=== PATIENT | male | born 1975 | race Caucasian/White ===

== ENCOUNTER → 2017-11-25 15:07 | Outpatient (CLI) | payer BC, SELFPAY ==
[2017-11-25 18:05] LABS: Absolute Lymphocyte Count 1.97 X10^3/ul (0.83-4.51); Absolute Neutrophil Count 4.3 X10^3/uL (2.0-7.7); Basophil# 0.02 X10^3/uL; Basophil% 0.3 % (0-1); Eosinophil# 0.25 X10^3/uL; Eosinophils% 3.4 % (0-5); Hematocrit 46.6 % (40-54); Hemoglobin 15.5 g/dl (13.0-16.5); Lymphocyte # 1.97 X10^3/ul (4.0); Mean Corp Hgb Conc 33.3 g/gl (32-36); Mean Corpuscular Hgb 30.2 pg (27.0-32.0); Mean Corpuscular Volume 90.7 fL (80-94); Mean Platelet Vol. 9.3 fl (6.2-12.0); Monocyte# 0.78 X10^3/uL; Monocyte% 10.7 % (0-10); Neutrophil # 4.26 X10^3/uL (2.7-7.7); Neutrophil % 58.5 % (47-70); Platelet Count 247 K/mm3 (150-450); RBC Distribution Width CV 12.9 % (11.6-14.6); RBC Distribution Width SD 42.6 fl (35.1-43.9); Red Blood Count 5.14 M/mm3 (4.6-6.2); White Blood Count 7.3 K/mm3 (4.4-11.0)
[2017-11-25 18:11] LABS: POSITIVE COUNT NO; POSITIVE DIFFERENTIAL NO; POSITIVE MORPHOLOGY NO
[2017-11-25 18:20] LABS: ALB/GLOB Ratio 1.1 RATIO (0.9-2.4); AST(SGOT) 20 U/L (15-37); Alanine Aminotransfer ALT/SGPT 44 U/L (16-61); Albumin, Serum 3.8 g/dL (3.2-5.0); Alkaline Phosphatase 87 U/L (45-117); Anion Gap 7 (5-15); BUN 18 mg/dL (7-18); BUN/Creat Ratio 17.8 RATIO (10-20); Calcium,Total 8.5 mg/dL (8.5-10.1); Chloride 108 mmol/L (98-107); Creatinine, Serum 1.01 mg/dL (0.70-1.30); EST Glomerular Filtration Rate 86 mL/min (>60); Est Glom Filt Rate - Afr Amer 104 mL/min (>60); Globulin 3.5 g/dL (2.2-4.2); Glucose 101 mg/dL (74-106); Potassium 3.4 mmol/L (3.5-5.1); Protein, Total 7.3 g/dL (6.4-8.2); Sodium Level 143 mmol/L (136-145)
[2017-11-29 06:07] LABS: QNTFERON TB Ag Minus Nil Value 0.01 IU/mL (.); QNTFERON TB Ag Value 0.02 IU/mL (.); QNTFERON TB Mitogen Value > 10.00 IU/mL (.); QNTFERON TB Nil Value 0.01 IU/mL (.)
[2017-11-29 11:58] LABS: Hep B Surface Antibodies Reactive (.); Hep C Antibodies <0.1 s/co ratio (0.0-0.9); QNTIFERON TB Gold Negative (Negative)
== END ==
PROVIDERS: Family Provider Family Medicine; PCP Family Medicine; Visit Provider Physician Assistant
DX: L40.0 Psoriasis vulgaris (principal); Z79.899 Other long term (current) drug therapy
CPT/HCPCS: 36415; 80053; 85025; 86480; 86706; 86803

== ENCOUNTER → 2019-03-14 15:51 | Outpatient (CLI) | payer BC, SELFPAY ==
[2017-02-07 08:09] VITALS: BMI 26.4
[2019-03-14 17:32] LABS: Absolute Neutrophil Count 2.9 X10^3/uL (2.0-7.7); Basophil# 0.03 X10^3/uL; Basophil% 0.6 % (0-1); Hematocrit 46.6 % (40-54); Hemoglobin 15.9 g/dl (13.0-16.5); Lymphocyte % 30.1 % (19-41); Mean Corp Hgb Conc 34.1 g/gl (32-36); Mean Corpuscular Hgb 29.4 pg (27.0-32.0); Mean Corpuscular Volume 86.1 fL (80-94); Mean Platelet Vol. 9.4 fl (6.2-12.0); Monocyte# 0.45 X10^3/uL; Neutrophil # 2.91 X10^3/uL (2.7-7.7); Neutrophil % 58.3 % (47-70); Platelet Count 215 K/mm3 (150-450); RBC Distribution Width CV 13.1 % (11.6-14.6); RBC Distribution Width SD 40.6 fl (35.1-43.9); Red Blood Count 5.41 M/mm3 (4.6-6.2)
[2019-03-14 17:38] LABS: POSITIVE COUNT NO; POSITIVE DIFFERENTIAL NO; POSITIVE MORPHOLOGY NO
[2019-03-14 17:53] LABS: Anion Gap 8 (5-15); BUN 20 mg/dL (7-18); BUN/Creat Ratio 19.2 RATIO (10-20); Calcium,Total 8.9 mg/dL (8.5-10.1); Chloride 105 mmol/L (98-107); Creatinine, Serum 1.04 mg/dL (0.70-1.30); EST Glomerular Filtration Rate 83 mL/min (>60); Est Glom Filt Rate - Afr Amer 100 mL/min (>60); Glucose 93 mg/dL (74-106); Potassium 3.7 mmol/L (3.5-5.1); Sodium Level 138 mmol/L (136-145)
[2019-03-17 03:06] LABS: QNTFERON TB Mitogen Value > 10.00 IU/mL (.); QNTFERON TB Nil Value 0.02 IU/mL (.); QNTFERON TB1+ Ag Value 0.02 IU/mL (.); QNTFERON TB2+ Ag Value 0.01 IU/mL (.)
[2019-03-18 14:06] LABS: QNTIFERON TB Positive Criteria Negative (Negative)
== END ==
PROVIDERS: Family Provider Family Medicine; PCP Family Medicine; Referring Provider Family Medicine; Visit Provider Nurse Practitioner Family
DX: L40.0 Psoriasis vulgaris (principal); L20.89 Other atopic dermatitis; Z79.899 Other long term (current) drug therapy
CPT/HCPCS: 36415; 80048; 85025; 86480

== ENCOUNTER → 2020-02-22 12:17 | Outpatient (CLI) | payer BC, SELFPAY ==
--- NOTE | 2020-02-22 12:21 | CT_ITS ---
STUDY: CT ABDOMEN AND PELVIS WITHOUT CONTRAST REASON FOR EXAM: Male, 44 years old. HEMATURIA, RIGHT FLANK PAIN RADIATION DOSAGE (If Supplied By Facility): CTDIvol = ( 7.61 ) mGy, DLP = ( 361.57 ) mGycm TECHNIQUE: Transaxial images were obtained from the dome of the diaphragm to the symphysis pubis without oral contrast, and without intravenous contrast. Sagittal and coronal images were reconstructed. Individualized dose optimization techniques were used for this CT. COMPARISON: None. FINDINGS: The visualized lung bases are unremarkable. The visualized portions of the heart are within normal limits. Normal liver. Normal gallbladder and extrahepatic biliary system. Normal spleen. Normal pancreas. Normal bilateral adrenal glands. 2 tiny nonobstructive right intrarenal calculi. Punctate calcification in the left midpole calyx. Normal visualized stomach. Normal small intestine. Normal colon. The appendix is visualized and appears normal. There is scattered atherosclerotic calcification of the abdominal aorta, without a demonstrated aneurysm. Normal inferior vena cava. Normal retroperitoneum. A tiny calcification is seen at the base of the bladder on the right side suggestive of a recently passed ureteral calculus. Normal abdominal wall. Disc space narrowing at the L5-S1 level with subchondral sclerosis. CT/Abdomen/Pelvis without Cont IMPRESSION: Findings suggestive of a recently passed tiny right ureteral calculus. The calculus is seen at the base of the bladder on the right side. Nonobstructive bilateral intrarenal calculi. Electronically Signed: Tam Kolb, at 12:36 EDT , Service support ,
== END ==
PROVIDERS: PCP Family Medicine; Referring Provider Family Medicine; Visit Provider Family Medicine
DX: R31.9 Hematuria, unspecified (principal)
CPT/HCPCS: 74176

== ENCOUNTER → 2021-06-03 12:22 | Outpatient (CLI) | payer BC, SELFPAY ==
[2021-06-03 15:04] LABS: Absolute Lymphocyte Count 1.93 X10^3/uL (0.83-4.51); Absolute Neutrophil Count 4.9 X10^3/uL (2.0-7.7); Basophil# 0.09 X10^3/uL; Basophil% 1.1 % (0-1); Eosinophil# 0.65 X10^3/uL; Eosinophils% 7.9 % (0-5); Hematocrit 47.9 % (40-54); Hemoglobin 16.2 g/dL (13.0-16.5); Lymphocyte # 1.93 X10^3/ul (0.83-4.51); Lymphocyte % 23.5 % (19-41); Mean Corp Hgb Conc 33.8 g/dL (32-36); Mean Corpuscular Hgb 29.7 pg (27.0-32.0); Mean Corpuscular Volume 87.7 fL (80-94); Mean Platelet Vol. 9.1 fl (6.2-12.0); Monocyte# 0.65 X10^3/uL; Monocyte% 7.9 % (0-10); NRBC Flagged by Analyzer 0 % (0-5); Neutrophil # 4.89 X10^3/uL (2.7-7.7); Neutrophil % 59.4 % (47-70); Platelet Count 291 K/mm3 (150-450); RBC Distribution Width CV 12.3 % (11.6-14.6); RBC Distribution Width SD 39.3 fl (35.1-43.9); Red Blood Count 5.46 M/mm3 (4.6-6.2); White Blood Count 8.2 K/mm3 (4.4-11.0)
[2021-06-03 15:44] LABS: ALB/GLOB Ratio 0.8 RATIO (0.9-2.4); AST(SGOT) 18 U/L (15-37); Alanine Aminotransfer ALT/SGPT 39 U/L (16-61); Albumin, Serum 3.7 g/dL (3.2-5.0); Alkaline Phosphatase 100 U/L (45-117); Anion Gap 5 (5-15); BUN 13 mg/dL (7-18); BUN/Creat Ratio 11.9 RATIO (10-20); Calcium,Total 9.3 mg/dL (8.5-10.1); Chloride 105 mmol/L (98-107); Cholesterol 192 mg/dL (200); Creatinine, Serum 1.09 mg/dL (0.70-1.30); EST Glomerular Filtration Rate 78 mL/min (>60); Est Glom Filt Rate - Afr Amer 94 mL/min (>60); Globulin 4.4 g/dL (2.2-4.2); Glucose 126 mg/dL (74-106); High Density Lipoprotein 36 mg/dL; Potassium 3.7 mmol/L (3.5-5.1); Protein, Total 8.1 g/dL (6.4-8.2); Sodium Level 138 mmol/L (136-145); Thyroid Stim Hormone (TSH) 1.54 uIU/mL (0.358-3.74); Triglycerides 151 mg/dL; Very Low Density Lipoprotein 30 mg/dL (5-40)
== END ==
PROVIDERS: PCP Family Medicine; Referring Provider Family Medicine; Visit Provider Family Medicine
DX: R03.0 Elevated blood-pressure reading, without diagnosis of hypertension (principal); R00.2 Palpitations
CPT/HCPCS: 36415; 80053; 80061; 84443; 85025

== ENCOUNTER 2021-06-16 16:53 | Inpatient (IN) | payer BC, SELFPAY ==
[2021-06-16] VITALS (19 sets, daily range): BP systolic 85–134; BP diastolic 67–104; PULSE 86–125; RESP 12–28; TEMP 35.4–37.1; O2SAT 94–100; BMI 27.8; BMI 26.2
--- NOTE | 2021-06-16 16:56 | EKG12_ITS ---
Test Reason : Blood Pressure : / mmHG Vent. Rate : 170 BPM Atrial Rate : 202 BPM P-R Int : 000 ms QRS Dur : 094 ms QT Int : 300 ms P-R-T Axes : 000 244 048 degrees QTc Int : 504 ms Supraventricular tachycardia Possible Right ventricular hypertrophy Possible Inferior infarct , age undetermined Abnormal ECG Confirmed by ADAMARIS BROWN, JANA ([id number]), editor dictionary NICOLAS MEZA ([id number]) on 06/18/2021 8:44:46 AM Referred By: JENNY Confirmed By:JANA BAILON MD
[2021-06-16] MEDS: 0.9% Normal Saline 1,000 ML 1000 ML IV (17:03)
--- NOTE | 2021-06-16 17:05 | RAD_ITS ---
STUDY: X-RAY CHEST REASON FOR EXAM: Male, 45 years old. Chest pain/pressure TECHNIQUE: Single AP portable view of the chest. COMPARISON: 02/07/2017 FINDINGS: EKG leads overlie the chest The lungs are clear and expanded. There is no demonstrated pleural abnormality. Normal size heart. Normal mediastinum and gato. Normal visualized pulmonary arteries. Normal visualized aortic arch and descending thoracic aorta. There are diffuse degenerative changes of the visualized thoracic spine. Normal visualized ribs, clavicles, and shoulders. There is no demonstrated abnormality of the visualized soft tissue structures of the upper abdomen. RAD/Chest 1 View (Portable) IMPRESSION: No acute pulmonary process Electronically Signed: López Perez MD at 17:19 EDT , Service support ,
--- NOTE | 2021-06-16 17:08 | EKG12_ITS ---
Test Reason : Blood Pressure : / mmHG Vent. Rate : 099 BPM Atrial Rate : 099 BPM P-R Int : 136 ms QRS Dur : 088 ms QT Int : 318 ms P-R-T Axes : 079 252 035 degrees QTc Int : 408 ms Sinus rhythm with frequent and consecutive Premature ventricular complexes Right ventricular hypertrophy Inferior infarct , age undetermined Abnormal ECG When compared with ECG of 16-JUN-2021 17:04, MANUAL COMPARISON REQUIRED, DATA IS UNCONFIRMED Confirmed by ADELA BROWN, AMANDA ([id number]), newspaper editor NICOLAS MEZA ([id number]) on 06/18/2021 12:41:24 PM Referred By: JENNY Confirmed By:AMANDA CHAPMAN MD
[2021-06-16 17:09] LABS: Absolute Neutrophil Count 5.7 X10^3/uL (2.0-7.7); Basophil% 0.8 % (0-1); Eosinophil# 1.14 X10^3/uL; Eosinophils% 9.5 % (0-5); Hematocrit 50.6 % (40-54); Hemoglobin 15.9 g/dL (13.0-16.5); Lymphocyte % 34.1 % (19-41); Mean Corp Hgb Conc 31.4 g/dL (32-36); Mean Corpuscular Hgb 28.9 pg (27.0-32.0); Mean Platelet Vol. 9.3 fl (6.2-12.0); Monocyte# 0.95 X10^3/uL; Monocyte% 7.9 % (0-10); NRBC Flagged by Analyzer 0 % (0-5); Neutrophil # 5.66 X10^3/uL (2.7-7.7); Neutrophil % 47.2 % (47-70); Platelet Count 272 K/mm3 (150-450); RBC Distribution Width CV 12.3 % (11.6-14.6); RBC Distribution Width SD 41.9 fl (35.1-43.9)
[2021-06-16] MEDS: Adenosine 6 MG/2 ML Syringe IV (17:11)
[2021-06-16] MEDS: Adenosine 6 MG/2 ML Syringe 12 MG IV (17:11)
--- NOTE | 2021-06-16 17:18 | CT_ITS ---
We are attempting to reach an attending provider to discuss findings. An addendum with communication details will be sent when the communication is complete. EXAM: CT ANGIOGRAPHY CHEST WITHOUT AND WITH INTRAVENOUS CONTRAST : 1975 CLINICAL INDICATION: High pretest probability for pulmonary embolus TECHNIQUE: Helically acquired angiography images were obtained of the chest without and with intravenous contrast. This CT exam was performed using one or more of the following dose reduction techniques: automated exposure control, adjustment of the mA and/or kV according to patient size, and/or use of iterative reconstruction technique. This report was created using [employer] report generation technology. MIP reconstructed images were created and reviewed. CONTRAST: IV 100mL [id number] COMPARISON: None. FINDINGS: PULMONARY ARTERIES: Large filling defects noted throughout the upper and lower lobe pulmonary artery branches as well as within the main pulmonary arteries as well as saddle embolus component. AORTA: Unremarkable. Normal in caliber. No evidence of dissection. GREAT VESSELS OF AORTIC ARCH: Unremarkable. Normal in caliber. No evidence of dissection. LUNGS AND PLEURAL SPACES: Peripheral 13 mm nodular density within the lateral segment of the right middle lobe may represent focal pneumonia or pulmonary infarct. No mass. No pleural effusion or thickening. HEART: Right ventricle is distended and contrast refluxes into dilated inferior vena cava and hepatic veins indicating right heart strain. No pericardial effusion. MEDIASTINUM: Unremarkable. No mediastinal or hilar adenopathy. Esophagus is unremarkable. No hiatal hernia. THYROID: Unremarkable. No thyroid lesions. BONES/JOINTS: Unremarkable. No suspicious lytic or blastic abnormality. CT/CTA Chest W/WO Contrast IMPRESSION: 1. Acute pulmonary embolism with saddle embolus, large bilateral embolus burden and evidence of right heart strain. 2. 13 mm peripheral right middle lobe nodular density which may represent pneumonia or possibly pulmonary infarction. Follow-up recommended. Individualized dose optimization techniques were used for this CT. at 1749 Reported and signed by: Dhiraj Brownlee MD Electronically Signed: Dhiraj Brownlee MD at 17:48 EDT Tel , Service support ,
[2021-06-16 17:26] LABS: ALB/GLOB Ratio 0.7 RATIO (0.9-2.4); AST(SGOT) 36 U/L (15-37); Alanine Aminotransfer ALT/SGPT 57 U/L (16-61); Albumin, Serum 3.2 g/dL (3.2-5.0); Alkaline Phosphatase 104 U/L (45-117); Anion Gap 19 (5-15); BUN 17 mg/dL (7-18); BUN/Creat Ratio 11.7 RATIO (10-20); Calcium,Total 8.9 mg/dL (8.5-10.1); Chloride 101 mmol/L (98-107); Creatinine, Serum 1.45 mg/dL (0.70-1.30); EST Glomerular Filtration Rate 56 mL/min (>60); Est Glom Filt Rate - Afr Amer 67 mL/min (>60); Estimated Creatinine Clearance 68.52 ml/min; Globulin 4.6 g/dL (2.2-4.2); Glucose 168 mg/dL (74-106); Lipase 123 U/L (73-393); Potassium 2.9 mmol/L (3.5-5.1); Protein, Total 7.8 g/dL (6.4-8.2); Sodium Level 141 mmol/L (136-145); Troponin-I HS 29 pg/mL (3.0-78.0)
[2021-06-16 17:31] LABS: International Normalized Ratio 1.2; Prothrombin Time (Protime)PT. 14.2 SECONDS (11.7-14.9)
[2021-06-16 17:32] LABS: Partial Thromboplast Time 25.6 Seconds (24.1-36.2)
--- NOTE | 2021-06-16 17:36 | EDS_ITS ---
HPI History of Present Illness Chief Complaint: General Illness Detail of Chief Complaint: Hypoxia, hypotension and rapid heart rate Informant: patient, family and EMS Onset/Context/Timing Onset: Hours (Acutely worse past hour or 2 prior to presentation) and Weeks (Onset shortness of breath started 2 to 3 weeks ago and dyspnea on exertion and fatigue) Context: Onset with activity and Sudden Onset Timing: Continuous Quality: Dyspnea and fatigue Location: Respiratory Current Severity: Severe Maximum Severity: Severe Worsened by: Nothing other than activity Relieved by: Nothing Associated Symptoms Associated Symptoms: Today lightheadedness and difficulty breathing Narrative Narrative: Patient is a 45-year-old male who presents with hypotension, hypoxia, rapid heartbeat. He states he is not been well for the past 2 to 3 weeks. He saw his primary care doctor a week ago. He denies history of VTE. He denies leg pain, swelling discoloration. Has not had surgery in the past month. He denies any infectious symptoms. He denies contact with anyone's been ill. He denies black or maroon-colored stool. He denies bleeding of his gums. Denies blood in his urine. Prior similar symptoms: Yes Recent Illness/Hospitalization: No PFSH PFSH Medical History Former smoker Medical History no medical history no medical history Home Medications cetirizine [Zyrtec] 10 mg PO PRN PRN 02/07/17 [History Last Taken Unknown] Allergy/AdvReac Type Severity Reaction Status Date / Time No Known Allergies Allergy Verified 02/07/17 08:31 Surgical History no surgical history no surgical history Social History (Updated 06/16/21 @ 17:[address] Fredis Aguilar MD) household members: spouse and children housing: house Smoking Status: Former smoker alcohol intake: current alcohol intake frequency: other substance use type: does not use ROS ROS ED Constitutional Constitutional ED: Denies chills, fever(s) or subjective Eyes Eyes: Denies blurry vision or change in vision ENT ENT ED: Denies ear pain, rhinorrhea or sore throat Cardiovascular Cardiovascular: Denies chest pain, orthopnea, palpitations, paroxysmal nocturnal dyspnea or racing heartbeat Respiratory/Chest Respiratory/Chest: Reports dyspnea and dyspnea on exertion; Denies cough, orthopnea, paroxysmal nocturnal dyspnea or sputum Gastrointestinal Gastrointestinal: Denies abdominal pain, diarrhea, nausea or vomiting Genitourinary Genitourinary ED: Denies dysuria, hematuria or urinary frequency Musculoskeletal Musculoskeletal: Denies arthralgias, myalgias or neck pain Integumentary Denies rash Neurologic Neurologic: Reports weakness; Denies headache(s) Endocrine Endocrinology: Denies polydipsia, polyphagia or polyuria EXAM Physical Exam Const Vital Signs: 06/16/21 16:54 06/16/21 16:56 06/16/21 17:04 Temperature 95.7 F L Temperature Source Temporal Pulse Rate 95 Respiratory Rate 22 H Blood Pressure 95/82 H 85/67 L Blood Pressure Mean 86 73 Oxygen Delivery Method Non-Rebreather Non-Rebreather Oxygen Flow Rate (L/min) 15 Fraction of Inspired Oxygen (FIO2) 98 Positive well nourished and well developed General Appearance ED: well developed, cyanotic and other Patient is pale and mottled with poor capillary refill, 4 to 5 seconds HEENT Reports moist mucous membranes HEENT Narrative: Head is atraumatic normocephalic. Ears normal. Eyes PERRL and EOMs intact bilaterally General Eye ED: Negative for pale conjunctiva or scleral icterus Neck no lymphadenopathy, supple and no JVD Chest Wall inspection of chest normal and palpation of chest normal Resp normal respiratory effort and clear to auscultation bilaterally Cardio regular rhythm, S1 normal heart sound, S2 normal heart sound and no murmurs Rate: tachycardic GI normal to inspection, nondistended, normoactive bowel sounds and non-tender Palpation: soft Back/Spine no CVA tenderness Cervical Spine: Negative for cervical spine tenderness Thoracic Spine / Upper Back: Negative for thoracic spinal tenderness or paraspinal muscle tenderness Extremity normal to inspection Extremity Narrative: Extremities are pale, mottled with poor capillary refill General Extremety ED: Negative for edema or tenderness General Extremity: Negative for edema Neuro oriented x3, CN's II-XII intact bilaterally and no sensory deficits noted Motor Exam: strength 5/5 throughout Psych mental status grossly normal Skin no rashes or lesions noted MDM MDM MDM Narrative Medical decision making narrative: She has a narrow complex tachycardia. EKG reveals supraventricular tachycardia. Patient was treated with 6 of adenosine followed by 12 of adenosine. Patient blood pressure improved. He also received 1 L of normal saline. Stat portable chest x-ray obtained interpreted by me as negative. In light of the pain the patient is hypotensive tachycardic and hypoxic with shortness of breath for 2 to 3 weeks concern is he has a significant pulmonary embolus. CTA reveals a saddle pulmonary embolus with high clot load. Since patient is hemodynamically unstable TPA was ordered. Patient remains hypotensive. Second liter of normal saline was ordered. tPA was brought to the ER. Patient has consented for therapy. Lab Data Attestation: I reviewed the patient's lab results. Labs: Laboratory Results - last 24 hr 06/16/21 06/16/21 06/16/21 16:35 16:35 16:35 WBC 12.0 H RBC 5.50 Hgb 15.9 Hct 50.6 MCV 92.0 MCH 28.9 MCHC 31.4 L RDW Std Deviation 41.9 RDW Coeff of [place] 12.3 Plt Count 272 MPV 9.3 Immature Gran % (Auto) 0.500 Neut % (Auto) 47.2 Lymph % (Auto) 34.1 Garrett % (Auto) 7.9 Eos % (Auto) 9.5 H Baso % (Auto) 0.8 Absolute Neuts (auto) 5.7 Absolute Lymphs (auto) 4.10 Nucleated RBC % 0 PT INR APTT D-Dimer Quant (PE/DVT) Sodium 141 Potassium 2.9 L Chloride 101 Carbon Dioxide 21.0 Anion Gap 19 H BUN 17 Creatinine 1.45 H Estim Creat Clear Calc 68.52 Est GFR (MDRD) Af Amer 67 Est GFR (MDRD) Non-Af 56 L BUN/Creatinine Ratio 11.7 Glucose 168 H Calcium 8.9 Total Bilirubin 0.50 AST 36 ALT 57 Alkaline Phosphatase 104 Troponin I High Sens 29 B-Natriuretic Peptide 348.5 H Total Protein 7.8 Albumin 3.2 Globulin 4.6 H Albumin/Globulin Ratio 0.7 L Lipase 123 06/16/21 17:00 WBC RBC Hgb Hct MCV MCH MCHC RDW Std Deviation RDW Coeff of [place] Plt Count MPV Immature Gran % (Auto) Neut % (Auto) Lymph % (Auto) Garrett % (Auto) Eos % (Auto) Baso % (Auto) Absolute Neuts (auto) Absolute Lymphs (auto) Nucleated RBC % PT 14.2 INR 1.2 APTT 25.6 D-Dimer Quant (PE/DVT) Cancelled Sodium Potassium Chloride Carbon Dioxide Anion Gap BUN Creatinine Estim Creat Clear Calc Est GFR (MDRD) Af Amer Est GFR (MDRD) Non-Af BUN/Creatinine Ratio Glucose Calcium Total Bilirubin AST ALT Alkaline Phosphatase Troponin I High Sens B-Natriuretic Peptide Total Protein Albumin Globulin Albumin/Globulin Ratio Lipase Radiography Chest X-Ray - ED: 1 View, Read by ED Physician (Interpreted by me time of x-ray and reason for CTA), Normal, Heart, Lungs, Mediastinum, Bony Structures and No Acute Disease Diagnostic Testing: Radiology Impression Chest X-Ray 06/16/21 17:05 IMPRESSION: No acute pulmonary process Electronically Signed: López Perez MD at 17:19 EDT , Service support , Radiologist contacted me regarding CTA. There is heart strain with significant clot load and saddle pulmonary embolus EKG Initial EKG: Attestation: I personally reviewed and interpreted this EKG as follows: Interpretation: Sinus Arrythmia (Narrow complex tachycardia consistent with intranodal reentry phenomenon. Heart rate is 170. QRS duration 94 ms. QT duration 300 ms with a QTC of 504 ms. [place] is normal. There appears to be evidence of right ventricular hypertrophy.) Critical Care Time Critical Care Time: Yes Critical care time (excluding procedures): 30-74 minutes (35 minutes), Including time spent: (, Physical, documentation, discussion with EMS, , pharmacist regarding TPA for pulmonary embolus), Discussing w/Patient &/or Family/Non Morse Intercept Technician, Discussing w/Consultants (Dr. Geiger was paged. Awaiting callback.) and Arranging Admission or Transfer Discharge Plan Dx/Rx/DC Orders Clinical Impression: Acute saddle pulmonary embolism, Shock circulatory, Acute respiratory failure with hypoxia, Acidosis, lactic Disposition Disposition: Acute Care [facility]
[2021-06-16 17:47] LABS: BNP,B-Type NATRIURETIC PEPTIDE 348.5 pg/mL (0-100)
[2021-06-16 17:50] LABS: Base Excess -6 mmol/L (-2 to +2); Bicarbonate 20.5 mmol/L (22-26); Blood Gas Specimen Type ART; FI02 100; O2 Delivery Device NRB; PO2 216 mmHG (75-100); SO2 100 % (95-99); Total Carbon Dioxide 22 mmol/L; pCO2 39.9 mmHg (35-45); pH 7.32 (7.35-7.45)
[2021-06-16 17:54] LABS: D-Dimer Quantitative (DVT/PE) 10.89 FEU/ug/m (0.27-0.49)
[2021-06-16 17:54] LABS: Lactic Acid 6.5 mmol/L (0.4-1.9)
--- NOTE | 2021-06-16 17:56 | NURSING ---
DR STEPHON ALVARADO
--- NOTE | 2021-06-16 18:01 | NURSING ---
ICU NU[facility]AH SADDLE PULMONARY EMBOLUS, SHOCK DUE TO PULMONARY EMBOLUS
[2021-06-16] MEDS: 0.9% Normal Saline 1,000 ML 999 ML IV (18:04)
--- NOTE | 2021-06-16 18:18 | PCM.HP.STD ---
Documented by User: SHERMAN Graham 06/16/21 18:49 HPI - General General Date of Admission: 06/16/21 Date of Service: 06/16/21 Chief Complaint: Shortness of Breath HPI Narrative TATO AGUIRRE, is a 45 M who presents with complaints of increased shortness of breath. Patient states over the past 3 weeks he has become more short of breath and has felt tired and fatigued for approximately 2 weeks. Patient denies fever, chills, cough, chest pain, nausea, vomiting. [facility] Medical History (Updated 06/16/21 @ 18:29 by HAI GrahamC) Former smoker Psoriasis Medical History no medical history Home Medications cetirizine [Zyrtec] 10 mg PO DAILY PRN 06/16/21 [History Last Taken 3 Weeks Ago ~05/26/21] Allergy/AdvReac Type Severity Reaction Status Date / Time No Known Allergies Allergy Verified 02/07/17 08:31 Family History no significant family his no significant family history Surgical History no surgical history no surgical history Social History household members: spouse and children housing: house Smoking Status: Former smoker alcohol intake: current alcohol intake frequency: other substance use type: does not use ROS Constitutional Constitutional: Reports fatigue; Denies anorexia, chills, fever(s), malaise or weakness Cardiovascular Cardiovascular: Reports chest pain and palpitations; Denies edema or syncope Respiratory/Chest Respiratory/Chest: Reports shortness of breath at rest, shortness of breath with exertion and tachypnea; Denies cough Gastrointestinal Gastrointestinal: Denies abdominal pain, constipation, diarrhea, nausea or vomiting Genitourinary Genitourinary: Denies dysuria Musculoskeletal Musculoskeletal: Denies back pain, extremity pain, joint pain, joint stiffness or joint swelling Integumentary Integumentary: Denies dry skin Neurologic Neurologic: Denies abnormal gait, abnormal speech, confusion or dizziness Psychiatric Psychiatric: Denies anxiety or depression Endocrine Endocrinology: Denies change in body appearance Hematologic/Lymphatic Hematologic/Lymphatic: Denies anemia, easy bleeding or easy bruising Vital Signs Vital Signs Vital Signs: 06/16/21 16:54 06/16/21 16:56 06/16/21 17:04 Temperature 95.7 F L Temperature Source Temporal Pulse Rate 95 Respiratory Rate 22 H Blood Pressure 95/82 H 85/67 L Blood Pressure Mean 86 73 Pulse Ox Oxygen Delivery Method Non-Rebreather Non-Rebreather Oxygen Flow Rate (L/min) 15 Fraction of Inspired Oxygen (FIO2) 98 06/16/21 17:48 06/16/21 17:59 06/16/21 18:04 Temperature 97.2 F L Temperature Source Temporal Pulse Rate 114 H 123 H 125 H Respiratory Rate 20 H 20 H 21 H Blood Pressure 102/80 113/85 H 113/85 H Blood Pressure Mean 87 94 94 Pulse Ox 100 100 100 Oxygen Delivery Method Non-Rebreather Non-Rebreather Non-Rebreather Oxygen Flow Rate (L/min) 15 15 Fraction of Inspired Oxygen (FIO2) 100 100 Weight Weight: 200 lb Body Mass Index (BMI) 27.8 Physical Exam Const alert, oriented x3 and no apparent distress General Appearance: cooperative HEENT normocephalic and head/scalp atraumatic Eyes conjunctivae normal and no scleral icterus Neck supple General: trachea midline Resp Effort and Inspection: able to speak in complete sentences, symmetric chest movement and tachypneic Auscultation: rales bilateral throughout Cardio regular rhythm, S1 normal heart sound, S2 normal heart sound and peripheral pulses 2+ throughout Rate: tachycardic GI normal to inspection, nondistended, normoactive bowel sounds, soft to palpation and non-tender Extremity normal capillary refill and no clubbing, cyanosis or edema General Extremity: no tenderness to palpation of joints or extremities Skin General Skin Exam: no breakdown and turgor normal Lesions: no lesions Rashes: no rashes Neuro no focal motor deficits and no sensory deficits noted Speech: speech normal Motor Exam: Negative for general weakness Psych thought process normal, cooperative and affect normal Appearance: appropriate Results Lab / Micro Data Result Diagrams: 06/16/21 16:35 06/16/21 16:35 Labs: Laboratory Results - last 24 hr 06/16/21 16:35: WBC 12.0 H, RBC 5.50, Hgb 15.9, Hct 50.6, MCV 92.0, MCH 28.9, MCHC 31.4 L, RDW Std Deviation 41.9, RDW Coeff of Trent 12.3, Plt Count 272, MPV 9.3, Immature Gran % (Auto) 0.500, Neut % (Auto) 47.2, Lymph % (Auto) 34.1, Hudson % (Auto) 7.9, Eos % (Auto) 9.5 H, Baso % (Auto) 0.8, Absolute Neuts (auto) 5.7, Absolute Lymphs (auto) 4.10, Nucleated RBC % 0 06/16/21 16:35: Sodium 141, Potassium 2.9 L, Chloride 101, Carbon Dioxide 21.0, Anion Gap 19 H, BUN 17, Creatinine 1.45 H, Estim Creat Clear Calc 68.52, Est GFR (MDRD) Af Amer 67, Est GFR (MDRD) Non-Af 56 L, BUN/Creatinine Ratio 11.7, Glucose 168 H, Calcium 8.9, Total Bilirubin 0.50, AST 36, ALT 57, Alkaline Phosphatase 104, Troponin I High Sens 29, Total Protein 7.8, Albumin 3.2, Globulin 4.6 H, Albumin/Globulin Ratio 0.7 L, Lipase 123 06/16/21 16:35: B-Natriuretic Peptide 348.5 H 06/16/21 17:00: PT 14.2, INR 1.2, APTT 25.6, D-Dimer Quant (PE/DVT) Cancelled 06/16/21 17:00: Lactic Acid 6.5 H* 06/16/21 17:32: D-Dimer Quant (PE/DVT) 10.89 H* ABG Data ABG results: ABG 06/16/21 17:45 Specimen Type ART pH 7.32 L Bicarbonate Actual 20.5 L Total CO2 22 Base Excess -6 L O2 Saturation 100 H O2 % 100 ABG pCO2 39.9 ABG pO2 216 H O2 Delivery Device NRB Radiology Impression Chest X-Ray 06/16/21 17:05 IMPRESSION: No acute pulmonary process Electronically Signed: López Perez MD at 17:19 EDT , Service support , Chest CTA 06/16/21 17:18 IMPRESSION: 1. Acute pulmonary embolism with saddle embolus, large bilateral embolus burden and evidence of right heart strain. 2. 13 mm peripheral right middle lobe nodular density which may represent pneumonia or possibly pulmonary infarction. Follow-up recommended. Individualized dose optimization techniques were used for this CT. at 1749 Reported and signed by: Dhiraj Brownlee MD Electronically Signed: Dhiraj Brownlee MD at 17:48 EDT Tel , Service support , ADDENDUM: 06/16/21 1757 IMPRESSION: 1. Acute pulmonary embolism with saddle embolus, large bilateral embolus burden and evidence of right heart strain. 2. 13 mm peripheral right middle lobe nodular density which may represent pneumonia or possibly pulmonary infarction. Follow-up recommended. Individualized dose optimization techniques were used for this CT. at 1749 Reported and signed by: Dhiraj Brownlee MD N.B. : The above Results were Read Back by Dhiraj Brownlee MD to Dr Jeff MD, and understanding confirmed on 06/16/2021 17:50:44 (ET). Electronically Signed: Dhiraj Brownlee MD at 17:48 EDT Tel , Service support , Assessment & Plan Assessment/Plan (1) Acute saddle pulmonary embolism: QUALIFIERS: Acute cor pulmonale presence: unspecified Qualified Code(s): I26.92 - Saddle embolus of pulmonary artery without acute cor pulmonale (2) Acute respiratory failure with hypoxia: PLAN: 1. Acute respiratory failure with hypoxia secondary to saddle pulmonary embolism -Admit to ICU for continuous pulse ox and cardiac monitoring -CTA positive for acute pulmonary embolism with saddle embolus, large bilateral embolus burden and evidence of right heart strain. D-dimer 10.9 -Chest x-ray negative for acute pulmonary findings -TPA administered in ER, post TPA orders in place. Will initiate heparin thrombolytic protocol following administration of TPA -Type and screen obtained in ER secondary to TPA administration -PT and OT to eval and treat -Consult cardiology -Consult pulmonology, case discussed with Dr. Geiger -Daily weights -Encourage incentive spirometer -Vital signs per protocol -CBC and CMP daily -Echocardiogram in a.m. -BNP 348.5, troponin 29. CPK pending -Oxygen therapy as needed, patient currently on nonrebreather 15L -Covid rapid antigen negative, PCR pending 2. Hypokalemia -Potassium chloride 60 mEq p.o. x1 -CMP ordered daily 3. Acute kidney injury -2 L normal saline given in ER -Normal saline 100 ml/hr -CMP daily, trend BUN and creatinine 4. Lactic acidosis -Likely secondary to circulatory shock -We will repeat per protocol DVT prophylaxis-not indicated due to administration of TPA and heparin drip This patient was seen by SHERMAN Graham under the supervision of Dr. Garcia. Documented by User: Dr. Karley Garcia MD 06/16/21 20:13 [facility] Medical History (Updated 06/16/21 @ 18:29 by HAI GrahamC) Former smoker Psoriasis Medical History no medical history Home Medications cetirizine [Zyrtec] 10 mg PO DAILY PRN 06/16/21 [History Last Taken 3 Weeks Ago ~05/26/21] Allergy/AdvReac Type Severity Reaction Status Date / Time No Known Allergies Allergy Verified 02/07/17 08:31 Family History no significant family his Surgical History no surgical history Social History household members: spouse and children housing: house Smoking Status: Former smoker alcohol intake: current alcohol intake frequency: other substance use type: does not use Results Lab / Micro Data Result Diagrams: 06/16/21 16:35 06/16/21 16:35 Charges/Coding Addendum Addendum: This patient was seen in conjunction with Melania Castle NP. I have independently interviewed and examined the patient and reviewed pertinent historical, laboratory, and other data. I have reviewed her note and concur with her documentation 45-year-old male who comes in with 3 weeks of feeling unwell with shortness of breath. Patient stated that he is been vaccinated for Covid. He recently saw his primary care doctor, nothing was recommended according to his . Patient was found by EMS lying face up in the parking lot. He was found to be hypotensive, hypoxic, tachycardic. Patient was found to have narrow complex tachycardia on admission. EKG had shown SVT. He received 6 mg of adenosine followed by 12 mg. His blood pressure improved. He was given 1 L of saline. CTA of the chest showed saddle embolus with bilateral pulmonary emboli. TPA was ordered and given in the ED. Upon discussion with patient accounts coordinator on-call and further discussion with ED physician, it was recommended patient be transferred to tertiary center with IR facilities for thrombectomy/targeted intravascular thrombolysis. This was discussed with the patient and his . They were in agreement. Physical Exam: Gen: Appears very unwell, pale, on nonrebreather mask, not jaundiced, evidence CVS:HS I +II, regular, tachycardia RESP: Diminished at lung bases GI: BS present and normal, soft, nontender, no palpable organs EXT:No edema ASSESSMENT: 1. Acute hypoxic respiratory failure 2. Acute massive PE with right heart failure 3. Sinus tachycardia 4. Leucocytosis 5. Hypokalemia 6. JOCELYNE 7. Lactic acidosis Plan: Continue on non-rebreather Monitor on alteplase order set Check Mg IVF Visit Charges Inpatient E&M: 01247 Init Hosp L3
--- NOTE | 2021-06-16 19:33 | CT_ITS ---
STUDY: CT BRAIN WITHOUT CONTRAST REASON FOR EXAM: Male, 45 years old. Headache after TPA RADIATION DOSAGE (If Supplied By Facility): CTDIvol = ( 44.99 ) mGy, DLP = ( 796.11 ) mGycm TECHNIQUE: Transaxial CT imaging of the brain was performed without administration of intravenous contrast material. Individualized dose optimization techniques were used for this CT. COMPARISON: None. FINDINGS: Contrast is present in the vessels of the brain related to a CTA of the chest performed on the same day. Volume averaging of the traversing anterior cerebral arteries noted anterior to the anterior aspect of the corpus callosum at the midline. Normal soft tissue structures. Normal calvarium. Normal size ventricles and extra-axial spaces for the patient''s age. Normal white matter tracts of the cerebral hemispheres. Normal basal ganglia and thalami. Normal brainstem. Normal cerebellum. There is no intracranial hemorrhage. There are no findings of an acute ischemic infarction. Normal visualized paranasal sinuses. CT/Brain/Head without Contrast IMPRESSION: Negative CT exam of the brain. Electronically Signed: Erasto Patel MD at 20:30 EDT , Service support ,
[2021-06-16 20:16] LABS: Probe Check PASS; Specimen Processing Control PASS
[2021-06-16] MEDS: HEPARIN/D5w 25,000 UNITS 25,000 UNITS/250 ML IV.SOLN. 10 UNITS IV (20:21)
--- NOTE | 2021-06-16 20:26 | ED.RN ---
pharmacy consulted about bolus for heparin. per pharmacist no bolus required. medication given as ordered. carlie torres rn [id number]
--- NOTE | 2021-06-16 20:43 | NURSING ---
PATIENT ACCEPTED TO [facility] AND DR. ALVARADO [facility] PT TO BE TRANSPORTED BY [facility]. [facility] GAVE ME A 12 HOUR ETA. I TRIED [employer], PHYSICIANS, ALONG SIDE COMPANIES THAT [facility] TRANSFER LINE GAVE ME. NO ONE WAS ABLE TO PROVIDE A MOBILE ICU. I CALLED TOMAS AT [facility] TO CONFIRM BEING PUT ON THE TRANSPORT LIST FOR MORNING ANALYT[employer] DATA [employer]ER.
--- NOTE | 2021-06-16 21:11 | PCM.HOSP.N ---
Hospitalist Note Patient will be admitted to ICU pending transfer to [facility]. Patient has been accepted by [facility] cardiology for possible thrombectomy however at this time adequate transportation is unable to obtained. ER contacted multiple ambulance companies to all give a 10 to 12-hour wait for transport. At the recommendations of [facility] cardiology we will obtain a repeat CTA of the chest at 11 PM for further evaluation. This plan was discussed with Dr. Ruiz who was agreeable.
[2021-06-16 21:14] LABS: Reflex Lactate? Y
[2021-06-16] MEDS: 0.9% Normal Saline 1,000 ML 100 ML IV (21:59)
[2021-06-16] MEDS: Potassium Chloride Oral Tablet 20 MEQ 60 MEQ PO (21:59)
[2021-06-16 22:14] LABS: Partial Thromboplast Time 130.3 Seconds (24.1-36.2)
[2021-06-16 22:22] LABS: Anion Gap 8 (5-15); BUN 17 mg/dL (7-18); BUN/Creat Ratio 16.3 RATIO (10-20); Calcium,Total 8.2 mg/dL (8.5-10.1); Chloride 108 mmol/L (98-107); Creatinine, Serum 1.04 mg/dL (0.70-1.30); EST Glomerular Filtration Rate 82 mL/min (>60); Est Glom Filt Rate - Afr Amer 99 mL/min (>60); Estimated Creatinine Clearance 95.53 ml/min; Glucose 105 mg/dL (74-106); Potassium 4.3 mmol/L (3.5-5.1); Sodium Level 142 mmol/L (136-145)
[2021-06-16 22:26] LABS: Lactic Acid 1.4 mmol/L (0.4-1.9)
[2021-06-16 22:52] LABS: CPK Total, Creatine Kinase 127 U/L (39-308); Troponin-I HS 4277 pg/mL (3.0-78.0)
--- NOTE | 2021-06-16 23:00 | CT_ITS ---
STUDY: CTA CHEST REASON FOR EXAM: Male, 45 years old. Follow-up bilateral pulmonary emboli Pulmonary embolism RADIATION DOSAGE (If Supplied By Facility): CTDIvol = ( 12.08 ) mGy, DLP = ( 442.48 ) mGycm TECHNIQUE: The examination was performed with the intravenous administration of IV 100mL [id number]. Post-processing of the angiographic images was performed, with multiplanar reformation and 3D reconstruction. Individualized dose optimization techniques were used for this CT. COMPARISON: Chest CTA dated June 16, 2021 at 5:26 PM FINDINGS: Follow-up study at 11:12 PM Moderate decrease in size/partial resolution of her proximally 50% or greater of the largest clots seen in the distal aspects of the bilateral main pulmonary arteries when compared to the prior study. Small nonocclusive clot remains in the very distal aspects of the bilateral main pulmonary arteries extending into the secondary peripheral branches. The clot in the superior peripheral branch of the left upper lobe is partially occlusive compared to bleed occlusion that was seen on the prior study. Interval resolution of previously seen distended right atrium and reflux of contrast into the IVC indicative of right heart strain. This process is completely resolved by CT criteria. Small irregular nodular density with pleural attachment in the right middle lobe reidentified and could represent scarring or developing pneumonia. Focal pulmonary infarct also considered although the appearance would be atypical. A malignant process is not favored, however follow-up CT chest exams are recommended according to the Fleischner Society''s criteria. The remaining lung musa are otherwise clear. Normal enhancement of the main pulmonary artery. Normal thoracic aorta and visualized great vessels. There is no demonstrated aortic dissection. Normal heart and pericardium. Normal mediastinum. Normal hilar regions. Normal visualized trachea and bronchi. The lungs are well expanded. Normal pleura. Normal chest wall structures. Normal osseous structures. Normal visualized upper abdomen. IMPRESSION: Pulmonary artery emboli demonstrate response to TPA with moderate improvement/resolution 1. Moderate decrease in size/partial resolution of her proximally 50% or greater of the largest clots seen in the distal aspects of the bilateral main pulmonary arteries when compared to the prior study. 2. Small nonocclusive clot remains in the very distal aspects of the bilateral main pulmonary arteries extending into the secondary peripheral branches. The clot in the superior peripheral branch of the left upper lobe is partially occlusive compared to bleed occlusion that was seen on the prior study. 3. Interval resolution of previously seen distended right atrium and reflux of contrast into the IVC indicative of right heart strain. This process is completely resolved by CT criteria. 4. Small irregular nodular density with pleural attachment in the right middle lobe reidentified and could represent scarring or developing pneumonia. Focal pulmonary infarct also considered although the appearance would be atypical. 5. A malignant process is not favored, however follow-up CT chest exams are recommended according to the Fleischner Society''s criteria. The remaining lung musa are otherwise clear. Electronically Signed: Erasto Patel MD at 23:58 EDT , Service support , CT/CTA Chest W/WO Contrast
--- NOTE | 2021-06-16 23:01 | PCM.CONS.C ---
Assessment & Plan Assessment/Plan (1) Acute saddle pulmonary embolism: QUALIFIERS: Acute cor pulmonale presence: unspecified Qualified Code(s): I26.92 - Saddle embolus of pulmonary artery without acute cor pulmonale PLAN: The patient has presented with the aforementioned symptoms and was subsequently diagnosed with acute thromboembolic events/PE with saddle emboli as noted by his chest CTA. This appeared to be associated with an underlying SVT as well as hypotension. The patient required evaluation care in the emergency department as previously noted. He is now in the ICU pending further evaluation with follow-up chest CT scan. A formal echocardiogram has been requested to assist in the evaluation care of the patient. He is also reported is pending transfer to [facility] for further advanced care which may include percutaneous intervention of his pulmonary emboli. 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 This may be brought out by his acute pulmonary event. At the present time he is remaining in sinus rhythm. He will need to be monitored for any obvious recurrent cardiac dysrhythmias. Over time consideration might be given as to whether he needs additional evaluation and care of this cardiac dysrhythmia from a cardiovascular standpoint/electrophysiology standpoint. (3) Hypotension: QUALIFIERS: Hypotension type: other hypotension type Qualified Code(s): I95.89 - Other hypotension PLAN: The patient was noted to be hypotensive. Certainly this could be related to his acute thromboembolic event and hemodynamic compromise. At the present time the patient's blood pressure appears to have improved status post regaining sinus rhythm and his additional ongoing evaluation and care. His blood pressure will need to be monitored for any other concerns. A formal echocardiogram has been requested to assist in the evaluation and care of the patient. (4) Abnormal cardiac enzyme level: PLAN: The patient's cardiac enzymes have increased. This may be secondary to his thromboembolic event ventricular strain. He will need to be monitored for any concerns separate from that that would indicate other etiologies cardiac or otherwise of his troponin I levels. His cardiac enzymes will be followed. His ECG will be followed. He has been requested to have a formal transthoracic echocardiogram. Addt'l Comments Overall, at the present time, the patient remains in the ICU. He has undergone laboratory evaluation, electrocardiographic follow-up, radiologic studies, and a quick look hand-held bedside transthoracic echocardiogram with the results as previously noted. He has been treated with thrombolytic therapy and is now currently on IV heparin. He is pending repeat chest CT scan to reassess his thromboembolic burden. A formal echocardiogram has been requested to assist in the evaluation and care of the patient. He is also already been accepted in transfer to [facility] for further advanced cardiopulmonary evaluation care as indicated above and is reported as waiting transportation to [facility]. Based upon the patient's clinical presentation, diagnosis, requirements, etc., it does appear to be reasonable for the patient to be transferred to a tertiary care center such as [facility] for advanced cardiology/pulmonary care which may include catheter-based intervention of his thromboembolic disease. This transportation, if not available by ground transportation, based upon his diagnosis/acute condition could be performed by air transportation. The patient's case has been discussed and reviewed with the patient and previously with Dr. Garcia. Time spent in the patient's evaluation and care: 75 minutes. This note was generated using a voice recognition system and there may be incorrect words, spelling or punctuation that were not noted when reviewing the office note prior to saving. HPI Consult Data Date of Consult: 06/16/21 HPI Narrative HPI Narrative: TATO AGUIRRE, is a 45 year old white male who presents for a consultation based upon concerns of saddle pulmonary emboli with concerns of right heart strain with findings of tachycardia [SVT (possible AVNRT)], hypotension, emergency department report of hypoxemia, subsequently requiring emergency department evaluation care with IV adenosine and IV thrombolytic therapy. The patient states that he is noted recently his blood pressures been somewhat elevated. He has been undergoing evaluation by his PCP for concerns of hypertension. He also notes that he has been progressively short of breath and dyspneic especially with exertional activity. He states today he was more short of breath and dyspneic at his place of employment. He states he subsequently had an episode where he lost consciousness. He was then brought to the emergency department for further evaluation and care. He does not recall having ongoing chest discomfort other than the sensation of an uncomfortable feeling in his chest when he becomes more short of breath and dyspneic. There is been no orthopnea or PND or ongoing lower extremity peripheral pitting edema, erythema, or warmth. He has not had any previous near syncopal or syncopal events. To the best of his knowledge he does not recall call any previous prolonged immobility episodes, injuries to his lower extremities, or other medical diagnoses. Also, to the best of his knowledge she does not recall having any thromboembolic disease in the past or a family history of thromboembolic disease. In the emergency department he was evaluated. He was found to have by the EMS system and ECG that demonstrated a sinus tachycardia with a possible left atrial enlargement, left axis deviation, a right bundle branch block pattern, possible RVH, and nonspecific ST/T wave abnormalities. He had a subsequent ECG that demonstrated what appeared to be a supraventricular tachycardia with a right IVCD pattern, possible RVH, and poor R wave progression. He had a subsequent ECG (status post IV adenosine) that demonstrated an underlying sinus rhythm with PVCs with a right IVCD pattern, possible RVH, and still poor R wave progression. He underwent a chest x-ray and subsequently a chest CT scan. The results are noted below. He was subsequently treated with O2 support and IV thrombolytic therapy. He was also arranged for transfer to [facility] for consideration for advanced care of his underlying thromboembolic disease with possible catheter-based intervention. In the interim he was placed in the ICU pending further evaluation with a repeat chest CT scan to reassess his thromboembolic burden pending transport to [facility]. Cardiology was consulted to assist in the evaluation of the patient. At the time of the consultation the patient denied ongoing chest discomfort. He noted his shortness of breath and dyspnea. There was no ongoing nausea, emesis, or diaphoresis. He was noted to have an Mark wrap on his right knee which he states was secondary to abrasive injuries from his syncope and fall. At the time of his consultation it was noted that his troponin I level had changed from a normal level to an elevated level at 4277. At the time of his cardiovascular consultation a quick look hand-held bedside transthoracic echocardiogram was performed. This was a technically diminished quality study. However, based upon the 2D echocardiographic images obtained there appears to be grossly normal left ventricular size, wall motion, and systolic function and the appearance of right ventricular dilatation with overall preserved RV systolic function. [facility] Medical History (Updated 06/16/21 @ 23:[address] Kayode Zavala MD) Abnormal cardiac enzyme level Former smoker Hypotension Psoriasis SVT (supraventricular tachycardia) Medical History no medical history Home Medications cetirizine [Zyrtec] 10 mg PO DAILY PRN 06/16/21 [History Last Taken 3 Weeks Ago ~05/26/21] Allergy/AdvReac Type Severity Reaction Status Date / Time No Known Allergies Allergy Verified 02/07/17 08:31 Family History no significant family his Surgical History no surgical history Social History household members: spouse and children housing: house Smoking Status: Former smoker alcohol intake: current alcohol intake frequency: other substance use type: does not use ROS Constitutional Constitutional: Reports as per HPI Eyes Eyes: Reports as per HPI ENT HEENT: Reports as per HPI Cardiovascular Cardiovascular: Reports dyspnea, dyspnea at rest, dyspnea on exertion and syncope Respiratory/Chest Respiratory/Chest: Reports dyspnea and dyspnea on exertion Gastrointestinal Gastrointestinal: Reports as per HPI Genitourinary Genitourinary: Reports as per HPI Musculoskeletal Musculoskeletal: Reports as per HPI Integumentary Integumentary: Reports as per HPI Neurologic Neurologic: Reports as per HPI Physical Exam Narrative This is a 45-year-old white male who appears to be resting reasonably comfortably at the moment. Const alert and oriented x3 Orientation / Consciousness: awake HEENT normocephalic, head/scalp atraumatic and hearing grossly normal bilaterally Eyes PERRL, EOMs intact bilaterally and conjunctivae normal Neck full ROM, supple and no JVD Resp Resp Narrative: No obvious rales or rhonchi Cardio regular rate, regular rhythm, S1 normal heart sound and S2 normal heart sound GI normal to inspection, nondistended, normoactive bowel sounds Extremity no pedal edema Extremity Narrative: Right knee: Positive Mark wrap Neuro oriented x3, moves all extremities, no focal motor deficits and no sensory deficits noted Psych mental status grossly normal Objective Data Vital Signs: Vital Signs Temp Pulse Resp BP Pulse Ox 97.4 F L 96 21 H 126/89 H 100 06/16/21 20:27 06/16/21 20:42 06/16/21 20:42 06/16/21 20:42 06/16/21 20:42 Oxygen Flow Rate (L/min) 15 Oxygen Delivery Method Non-Rebreather Weight: 200 lb Body Mass Index (BMI) 27.8 Intake & Output: Intake and Output for Last 24 Hours 06/14/21 06/15/21 06/16/21 23:59 23:59 23:59 Intake Total 2231.5 / 2231.5 Balance 2231.5 / 2231.5 Lab / Micro Data Result Diagrams: 06/16/21 16:35 06/16/21 21:46 Labs: Laboratory Results - last 24 hr 06/16/21 16:35: WBC 12.0 H, RBC 5.50, Hgb 15.9, Hct 50.6, MCV 92.0, MCH 28.9, MCHC 31.4 L, RDW Std Deviation 41.9, RDW Coeff of [place] 12.3, Plt Count 272, MPV 9.3, Immature Gran % (Auto) 0.500, Neut % (Auto) 47.2, Lymph % (Auto) 34.1, [place] % (Auto) 7.9, Eos % (Auto) 9.5 H, Baso % (Auto) 0.8, Absolute Neuts (auto) 5.7, Absolute Lymphs (auto) 4.10, Nucleated RBC % 0 06/16/21 16:35: Sodium 141, Potassium 2.9 L, Chloride 101, Carbon Dioxide 21.0, Anion Gap 19 H, BUN 17, Creatinine 1.45 H, Estim Creat Clear Calc 68.52, Est GFR (MDRD) Af Amer 67, Est GFR (MDRD) Non-Af 56 L, BUN/Creatinine Ratio 11.7, Glucose 168 H, Calcium 8.9, Total Bilirubin 0.50, AST 36, ALT 57, Alkaline Phosphatase 104, Troponin I High Sens 29, Total Protein 7.8, Albumin 3.2, Globulin 4.6 H, Albumin/Globulin Ratio 0.7 L, Lipase 123 06/16/21 16:35: B-Natriuretic Peptide 348.5 H 06/16/21 17:00: PT 14.2, INR 1.2, APTT 25.6, D-Dimer Quant (PE/DVT) Cancelled 06/16/21 17:00: Lactic Acid 6.5 H* 06/16/21 17:32: D-Dimer Quant (PE/DVT) 10.89 H* 06/16/21 18:15: Blood Type B POSITIVE, Antibody Screen NEGATIVE 06/16/21 18:58: COVID-19 (LEONEL) Negative 06/16/21 21:46: Magnesium 2.0, Total Creatine Kinase 127, Troponin I High Sens 4277 H* 06/16/21 21:46: Lactic Acid 1.4 06/16/21 21:46: APTT 130.3 H* 06/16/21 21:46: Sodium 142, Potassium 4.3, Chloride 108 H, Carbon Dioxide 26.0, Anion Gap 8, BUN 17, Creatinine 1.04, Estim Creat Clear Calc 95.53, Est GFR (MDRD) Af Amer 99, Est GFR (MDRD) Non-Af 82, BUN/Creatinine Ratio 16.3, Glucose 105, Calcium 8.2 L Micro: Microbiology 06/16/21 18:00 Nasal Secretion SARS-CoV-2 Antigen (Rapid) - Final ABG Data ABG results: ABG 06/16/21 17:45 Specimen Type ART pH 7.32 L Bicarbonate Actual 20.5 L Total CO2 22 Base Excess -6 L O2 Saturation 100 H O2 % 100 ABG pCO2 39.9 ABG pO2 216 H O2 Delivery Device NRB Cardiology Labs/Tests 06/16/21 16:35: WBC 12.0 H, RBC 5.50, Hgb 15.9, Hct 50.6, MCV 92.0, MCH 28.9, MCHC 31.4 L, Plt Count 272, MPV 9.3, Immature Gran % (Auto) 0.500, Neut % (Auto) 47.2, Lymph % (Auto) 34.1, [place] % (Auto) 7.9, Eos % (Auto) 9.5 H, Baso % (Auto) 0.8, Absolute Neuts (auto) 5.7, Nucleated RBC % 0 06/16/21 16:35: Sodium 141, Potassium 2.9 L, Chloride 101, Carbon Dioxide 21.0, Anion Gap 19 H, BUN 17, Creatinine 1.45 H, Est GFR (MDRD) Af Amer 67, Est GFR (MDRD) Non-Af 56 L, BUN/Creatinine Ratio 11.7, Glucose 168 H, Calcium 8.9, Total Bilirubin 0.50 06/16/21 16:35: B-Natriuretic Peptide 348.5 H 06/16/21 17:00: PT 14.2, INR 1.2, APTT 25.6, D-Dimer Quant (PE/DVT) Cancelled 06/16/21 17:00: Lactic Acid 6.5 H* 06/16/21 17:32: D-Dimer Quant (PE/DVT) 10.89 H* 06/16/21 17:45: pH 7.32 L, Bicarbonate Actual 20.5 L, Base Excess -6 L, O2 Saturation 100 H, ABG pCO2 39.9, ABG pO2 216 H 06/16/21 21:46: Magnesium 2.0 06/16/21 21:46: Lactic Acid 1.4 06/16/21 21:46: APTT 130.3 H* 06/16/21 21:46: Sodium 142, Potassium 4.3, Chloride 108 H, Carbon Dioxide 26.0, Anion Gap 8, BUN 17, Creatinine 1.04, Est GFR (MDRD) Af Amer 99, Est GFR (MDRD) Non-Af 82, BUN/Creatinine Ratio 16.3, Glucose 105, Calcium 8.2 L Rhythm: Sinus rhythm EKG: As noted above ECHO: As noted above Stress Test: DATE OF SERVICE: 02/22/2017 EXERCISE TOLERANCE TEST: The patient exercised on a Bob protocol for 15 minutes completing stage 5, achieving a peak heart rate of 193 beats per minute (108% predicted maximum heart rate) and a peak blood pressure of 192/80 mmHg and a peak MET capacity of 17 METs. The baseline ECG demonstrated normal sinus rhythm. The peak exercise ECG demonstrated no obvious ECG changes. There was rare PAC pretest and in recovery. There was rare PVC during exercise. The functional capacity was considered excellent. The patient had no complaint of chest discomfort during exercise or recovery. The examination was discontinued secondary to dyspnea and leg discomfort. IMPRESSION: 1. Technically adequate (percent predicted maximum heart rate greater than 85%) exercise tolerance test. 2. Peak exercise ECG with no obvious ECG changes. 3. Rare premature atrial contraction pretest and in recovery. 4. Rare premature ventricular contraction during exercise. 5. Nuclear images pending. MYOCARDIAL PERFUSION IMAGING STUDY: TECHNIQUE: The patient was injected with 14.1 mCi of technetium 99m Cardiolite and subsequently rest SPECT Cardiolite nuclear imaging was obtained in the horizontal long, vertical long and short axes views. The patient exercised on a Bob protocol for 15 minutes completing stage 5, achieving a peak heart rate of 193 beats per minute (108% predicted maximum heart rate) and a peak blood pressure of 192/80 mmHg and a peak MET capacity of 17 METs. The patient was injected with 44.1 mCi of technetium 99m Cardiolite and subsequently stress SPECT Cardiolite nuclear imaging was obtained in the horizontal long, vertical long and short axes views. A gated Cardiolite study at peak stress was obtained. INTERPRETATION: Rest and stress SPECT Cardiolite nuclear imaging status post realignment, normalization, pre-attenuation correction, and post-attenuation correction both demonstrate at rest areas of diminished tracer uptake in portions of the basal interventricular septum. Status post stress, these areas appear to be improved and/or normalized. Otherwise, status post stress, there appears to be relative uniform tracer uptake. There are similar type findings on the resting and stress polar map images. There is end-systolic thickening and brightening. The gated Cardiolite study demonstrates myocardial thickening and inward wall motion. The reported LVEF is 71%. The aforementioned changes appear compatible with the effects of shifting soft tissue attenuation/artifact with no myocardial perfusion changes considered diagnostic for associated stress-induced myocardial ischemia or previous myocardial injury/infarction. IMPRESSION: 1. Rest and stress SPECT Cardiolite nuclear imaging demonstrates myocardial perfusion changes at rest, which appear to improve/normalize following stress appearing compatible with shifting soft tissue attenuation/artifact with no myocardial perfusion changes considered diagnostic for associated stress-induced myocardial ischemia or previous myocardial injury/infarction. 2. The gated Cardiolite study reports an LVEF of 71%. Radiography Diagnostic Testing: Radiology Impression Chest X-Ray 06/16/21 17:05 IMPRESSION: No acute pulmonary process Electronically Signed: López Perez MD at 17:19 EDT , Service support , Chest CTA 06/16/21 17:18 IMPRESSION: 1. Acute pulmonary embolism with saddle embolus, large bilateral embolus burden and evidence of right heart strain. 2. 13 mm peripheral right middle lobe nodular density which may represent pneumonia or possibly pulmonary infarction. Follow-up recommended. Individualized dose optimization techniques were used for this CT. at 1249 Reported and signed by: Dhiraj Brownlee MD Electronically Signed: Dhiraj Brownlee MD at 17:48 EDT Tel , Service support , ADDENDUM: 06/16/21 1757 IMPRESSION: 1. Acute pulmonary embolism with saddle embolus, large bilateral embolus burden and evidence of right heart strain. 2. 13 mm peripheral right middle lobe nodular density which may represent pneumonia or possibly pulmonary infarction. Follow-up recommended. Individualized dose optimization techniques were used for this CT. at 1749 Reported and signed by: Dhiraj Brownlee MD N.B. : The above Results were Read Back by Dhiraj Brownlee MD to Dr Jeff MD, and understanding confirmed on 06/16/2021 17:50:44 (ET). Electronically Signed: Dhiraj Brownlee MD at 17:48 EDT Tel , Service support , Brain CT 06/16/21 19:33 IMPRESSION: Negative CT exam of the brain. Electronically Signed: Erasto Patel MD at 20:30 EDT , Service support ,
[2021-06-17] VITALS: BP 120/83; PULSE 91; PULSE 95; RESP 16; O2SAT 95
[2021-06-17 01:00] VITALS: BP 135/94; PULSE 95; RESP 16; O2SAT 96
--- NOTE | 2021-06-17 01:04 | PCM.DC ---
Discharge Instructions Diet Discharge Diet: No restrictions Follow Up Care Test Results: Test results from this visit will be discussed in further detail at your follow-up appointment, if applicable. Discharge Plan Admission Admit Date/Time: 06/16/21 17:56 Primary Reason for Your Visit: Shortness of Breath Attending Provider: Karley Garcia Primary Care Provider: Rosemary Scruggs Discharge Orders/Prescriptions Prescriptions: No Action cetirizine [Zyrtec] 10 mg Tablet 10 mg PO DAILY PRN (Reason: ALLERGIES) RF: 0 Referrals / Follow Up: Rosemary Scruggs MD [Primary Care Provider] - Disposition Disposition (needs filled in before D/C Order can be placed): [facility]
--- NOTE | 2021-06-17 01:08 | PCM.DC.SUM ---
Documented by User: SHERMAN Graham 06/17/21 01:18 Providers Date of Admission: 06/16/21 Primary Care Physician: Dr. Rosemary Scruggs MD Reason For Visit: RESP FAILURE/ACUTE PE Diagnosis Discharge Diagnosis (1) Acute saddle pulmonary embolism: Status: Acute Code(s): I26.92 - Saddle embolus of pulmonary artery without acute cor pulmonale Qualifiers: Acute cor pulmonale presence: unspecified Qualified Code(s): I26.92 - Saddle embolus of pulmonary artery without acute cor pulmonale (2) SVT (supraventricular tachycardia): Status: Acute Code(s): I47.1 - Supraventricular tachycardia (3) Hypotension: Status: Acute Code(s): I95.9 - Hypotension, unspecified Qualifiers: Hypotension type: other hypotension type Qualified Code(s): I95.89 - Other hypotension (4) Abnormal cardiac enzyme level: Status: Acute Code(s): R74.8 - Abnormal levels of other serum enzymes Medications at Discharge Home Medications cetirizine [Zyrtec] 10 mg PO DAILY PRN 06/16/21 Hospital Course Operations None Procedures EKG Summary of Care Provided Minutes Spent on Discharge: 35 Hospital Course: Patient is a 45-year-old male who presented to the ER on 06/16/2021 with shortness of breath and palpitations. Patient was noted to be in a narrow complex SVT and was given adenosine 6 mg x 1 with a follow-up dose of adenosine 12 mg x 1 which was effective. Upon initial presentation to ER patient was noted to be tachycardic tachypneic and hypotensive. Following the administration of TPA patient will stabilize hemodynamically. Patient CTA demonstrates acute pulmonary embolism with saddle embolus large bilateral embolus burden and evidence of right heart strain. Patient was given TPA in the ER due to CTA findings along with hypotension, tachycardia and evidence of cardiac strain. Repeat CTA obtained approximately 3 hours after TPA administration demonstrates moderate decrease in size/partial resolution of proximally 50% or greater of the largest clot seen in the distal aspects of the bilateral main pulmonary arteries when compared to the prior study. Small nonocclusive clot remains in the very distal aspect of the bilateral main pulmonary arteries extending into secondary peripheral branches. The clot in the superior peripheral branch of the left upper lobe is partially occlusive compared to pleat occlusion that was seen on the prior study. Interval resolution of previously seen distended right atrium and reflux of contrast into the IVC indicative of right heart strain this process is completely resolved by CT criteria. Following administration of TPA patient was also initiated on a heparin drip in ER. Patient was accepted and plan for transfer to [facility] for evaluation by cardiology there for a thrombectomy however transportation was unable to be obtained at that time. Once admitted to ICU at [facility] patient was evaluated by Dr. Zavala who determined that patient should be transferred via [facility] for further evaluation. Patient hemodynamically stable at time of transfer. Physical Exam Const alert, oriented x3 and no apparent distress General Appearance: cooperative HEENT normocephalic and head/scalp atraumatic Eyes conjunctivae normal and no scleral icterus Neck supple General: trachea midline Lymph Lymphatic: no lymphadenopathy noted Resp normal respiratory effort, normal air movement and clear to auscultation bilaterally Effort and Inspection: able to speak in complete sentences and symmetric chest movement Auscultation: diminished lung sounds Cardio regular rate, regular rhythm, S1 normal heart sound, S2 normal heart sound and peripheral pulses 2+ throughout GI normal to inspection, nondistended, normoactive bowel sounds, soft to palpation and non-tender Extremity normal capillary refill and no clubbing, cyanosis or edema General Extremity: no tenderness to palpation of joints or extremities Skin skin turgor normal General Skin Exam: no breakdown and turgor normal Lesions: no lesions Rashes: no rashes Neuro no focal motor deficits and no sensory deficits noted Speech: speech normal Motor Exam: Negative for general weakness Psych thought process normal, cooperative and affect normal Appearance: appropriate Weight / BMI Weight Weight: 193 lb 5.526 oz Body Mass Index (BMI) 26.2 ABG / Lab / Microbiology Data Result Diagrams: 06/16/21 16:35 06/16/21 21:46 Laboratory: Laboratory Results - last 24 hr 06/16/21 16:35: WBC 12.0 H, RBC 5.50, Hgb 15.9, Hct 50.6, MCV 92.0, MCH 28.9, MCHC 31.4 L, RDW Std Deviation 41.9, RDW Coeff of [place] 12.3, Plt Count 272, MPV 9.3, Immature Gran % (Auto) 0.500, Neut % (Auto) 47.2, Lymph % (Auto) 34.1, [place] % (Auto) 7.9, Eos % (Auto) 9.5 H, Baso % (Auto) 0.8, Absolute Neuts (auto) 5.7, Absolute Lymphs (auto) 4.10, Nucleated RBC % 0 06/16/21 16:35: Sodium 141, Potassium 2.9 L, Chloride 101, Carbon Dioxide 21.0, Anion Gap 19 H, BUN 17, Creatinine 1.45 H, Estim Creat Clear Calc 68.52, Est GFR (MDRD) Af Amer 67, Est GFR (MDRD) Non-Af 56 L, BUN/Creatinine Ratio 11.7, Glucose 168 H, Calcium 8.9, Total Bilirubin 0.50, AST 36, ALT 57, Alkaline Phosphatase 104, Troponin I High Sens 29, Total Protein 7.8, Albumin 3.2, Globulin 4.6 H, Albumin/Globulin Ratio 0.7 L, Lipase 123 06/16/21 16:35: B-Natriuretic Peptide 348.5 H 06/16/21 17:00: PT 14.2, INR 1.2, APTT 25.6, D-Dimer Quant (PE/DVT) Cancelled 06/16/21 17:00: Lactic Acid 6.5 H* 06/16/21 17:32: D-Dimer Quant (PE/DVT) 10.89 H* 06/16/21 18:15: Blood Type B POSITIVE, Antibody Screen NEGATIVE 06/16/21 18:58: COVID-19 (LEONEL) Negative 06/16/21 21:46: Magnesium 2.0, Total Creatine Kinase 127, Troponin I High Sens 4277 H* 06/16/21 21:46: Lactic Acid 1.4 06/16/21 21:46: APTT 130.3 H* 06/16/21 21:46: Sodium 142, Potassium 4.3, Chloride 108 H, Carbon Dioxide 26.0, Anion Gap 8, BUN 17, Creatinine 1.04, Estim Creat Clear Calc 95.53, Est GFR (MDRD) Af Amer 99, Est GFR (MDRD) Non-Af 82, BUN/Creatinine Ratio 16.3, Glucose 105, Calcium 8.2 L Microbiology: Microbiology 06/16/21 18:00 Nasal Secretion SARS-CoV-2 Antigen (Rapid) - Final ABG: ABG 06/16/21 17:45 Specimen Type ART pH 7.32 L Bicarbonate Actual 20.5 L Total CO2 22 Base Excess -6 L O2 Saturation 100 H O2 % 100 ABG pCO2 39.9 ABG pO2 216 H O2 Delivery Device NRB Radiography Diagnostic Testing: Radiology Impression Chest X-Ray 06/16/21 17:05 IMPRESSION: No acute pulmonary process Electronically Signed: López Perez MD at 17:19 EDT , Service support , Chest CTA 06/16/21 17:18 IMPRESSION: 1. Acute pulmonary embolism with saddle embolus, large bilateral embolus burden and evidence of right heart strain. 2. 13 mm peripheral right middle lobe nodular density which may represent pneumonia or possibly pulmonary infarction. Follow-up recommended. Individualized dose optimization techniques were used for this CT. at 1749 Reported and signed by: Dhiraj Brownlee MD Electronically Signed: Dhiraj Brownlee MD at 17:48 EDT Tel , Service support , ADDENDUM: 06/16/21 1757 IMPRESSION: 1. Acute pulmonary embolism with saddle embolus, large bilateral embolus burden and evidence of right heart strain. 2. 13 mm peripheral right middle lobe nodular density which may represent pneumonia or possibly pulmonary infarction. Follow-up recommended. Individualized dose optimization techniques were used for this CT. at 1749 Reported and signed by: Dhiraj Brownlee MD N.B. : The above Results were Read Back by Dhiraj Brownlee MD to Dr Jeff MD, and understanding confirmed on 06/16/2021 17:50:44 (ET). Electronically Signed: Dhiraj Brownlee MD at 17:48 EDT Tel , Service support , Brain CT 06/16/21 19:33 IMPRESSION: Negative CT exam of the brain. Electronically Signed: Erasto Patel MD at 20:30 EDT , Service support , Chest CTA 06/16/21 23:00 D/C Instructions Discharge Diet: No restrictions Meaningful Use Info Meaningful Use Diagnoses (Choose all that apply): None applicable Discharge Plan Admission Admit Date/Time: 06/16/21 17:56 Primary Reason for Your Visit: Shortness of Breath Attending Provider: Karley Garcia Primary Care Provider: Rosemary Scruggs Discharge Orders/Prescriptions Prescriptions: No Action cetirizine [Zyrtec] 10 mg Tablet 10 mg PO DAILY PRN (Reason: ALLERGIES) RF: 0 Referrals / Follow Up: Rosemary Scruggs MD [Primary Care Provider] - Disposition Disposition (needs filled in before D/C Order can be placed): [facility] Documented by User: Dr. Karley Garcia MD 06/17/21 13:51 Providers Date of Admission: 06/16/21 Reason For Visit: RESP FAILURE/ACUTE PE Medications at Discharge Home Medications cetirizine [Zyrtec] 10 mg PO DAILY PRN 06/16/21 ABG / Lab / Microbiology Data Result Diagrams: 06/16/21 16:35 06/16/21 21:46 Discharge Plan Admission Admit Date/Time: 06/16/21 17:56 Primary Reason for Your Visit: Shortness of Breath Attending Provider: Karley Garcia Primary Care Provider: Rosemary Scruggs Discharge Orders/Prescriptions Prescriptions: No Action cetirizine [Zyrtec] 10 mg Tablet 10 mg PO DAILY PRN (Reason: ALLERGIES) RF: 0 Referrals / Follow Up: Rosemary Scruggs MD [Primary Care Provider] - Disposition Disposition (needs filled in before D/C Order can be placed): [facility] Charges/Coding Addendum Addendum: This patient was seen in conjunction with Melania Castle. I have independently interviewed and examined the patient and reviewed pertinent historical, laboratory, and other data. I have reviewed her note and concur with her documentation Patient was seen earlier on in the day. History and physical were done. The plan as discussed with the ED physician was to have patient transferred to [facility]. They however were unable to get transportation. Patient got admitted to ICU. Blood pressures appear to have improved. Cardiology was consulted. Recommended transfer to [facility] by air transport. Visit Charges Inpatient E&M: 67131 Disch Hosp
--- NOTE | 2021-06-17 01:27 | NURSING ---
Dr. Zavala in to see patient at 06/17 2230. Stated that he believes patient should be transferred.
--- NOTE | 2021-06-17 01:28 | NURSING ---
Spoke with RN at [facility] accepting unit at 06/17/21 0019, charge nurse of unit stated that it was alright to ship patient because Dr. aHstings had already accepted patient.
--- NOTE | 2021-06-17 02:26 | NURSING ---
Gave report to Carol Ann SOUZA at [facility]. Pt. leaving with transport team at this time as well. 06/17/21 0137
== END 2021-06-17 01:37 | disposition short-term general hospital (02) | DRG 175 ==
LOC: ED 17:44 → ICU 21:02
PROVIDERS: Admitting Provider Internal Medicine; Emergency Provider Emergency Medicine; PCP Family Medicine; Visit Provider Internal Medicine
DX: I26.92 Saddle embolus of pulmonary artery without acute cor pulmonale (principal); J96.01 Acute respiratory failure with hypoxia; E87.2 Acidosis; N17.9 Acute kidney failure, unspecified; I47.1 Supraventricular tachycardia; I50.810 Right heart failure, unspecified; I95.9 Hypotension, unspecified; D72.829 Elevated white blood cell count, unspecified; R74.8 Abnormal levels of other serum enzymes; E87.6 Hypokalemia; Z87.891 Personal history of nicotine dependence
CPT/HCPCS: 36600; 70450; 71045; 71275; 80048; 80053; 82550; 82803; 83605; 83690; 83735; 83880; 84484; 85025; 85379; 85610; 85730; 86850; 86900; 86901; 87426; 87635; 92960; 93005; 99251; 99285; J2997; J7030; J7050; Q9967; U0005; A4216; G0463; J0153; U0003

== ENCOUNTER → 2021-06-22 15:47 | Outpatient (CLI) | payer BC, SELFPAY ==
[2021-06-22 18:28] LABS: PSA,Total - Annual Screen 0.96 ng/mL (0.00-4.00)
== END ==
PROVIDERS: PCP Family Medicine; Referring Provider Family Medicine; Visit Provider Family Medicine
DX: Z86.711 Personal history of pulmonary embolism (principal)
CPT/HCPCS: 36415; 84153; G0103

== ENCOUNTER → 2021-07-15 13:47 | Outpatient (CLI) | payer BC, SELFPAY ==
--- NOTE | 2021-07-15 13:50 | CT_ITS ---
STUDY: CT ABDOMEN AND PELVIS WITH CONTRAST REASON FOR EXAM: Male, 45 years old. DVT, concern for malignancy as the cause RADIATION DOSAGE (If Supplied By Facility): CTDIvol = ( 13.19 ) mGy, DLP = ( 840.04 ) mGycm TECHNIQUE: Transaxial images were obtained from the dome of the diaphragm to the symphysis pubis with oral contrast. Oral and amp; IV Readi-CAT and amp; 100mL Isovue-370 was administered. Sagittal and coronal images were reconstructed. Individualized dose optimization techniques were used for this CT. COMPARISON: Comparison is made with prior examination dated 02/22/2000 FINDINGS: Minimal increase in the markings in the anterior lateral aspect of the right middle lobe suggestive of scarring. The visualized portions of the heart are within normal limits. Normal liver. Normal gallbladder and extrahepatic biliary system. Normal spleen. Normal pancreas. Normal bilateral adrenal glands. Normal right kidney. Normal left kidney. Normal visualized stomach. Normal small intestine. Large amount of fecal material is seen in the colon. Sigmoid diverticulosis. The appendix is visualized and appears normal. Normal abdominal aorta. Normal inferior vena cava. Normal retroperitoneum. Normal urinary bladder. There is a left-sided inguinal hernia containing adipose tissue. Disc space narrowing at the L5-S1 level. CT/Abdomen/Pelvis WITH Contrast IMPRESSION: Scattered sigmoid diverticula. Moderate amount of fecal material is seen in the colon. Electronically Signed: Tam Kolb MD at 14:50 EDT , Service support ,
== END ==
PROVIDERS: PCP Family Medicine; Referring Provider Family Medicine; Visit Provider Family Medicine
DX: I26.99 Other pulmonary embolism without acute cor pulmonale (principal)
CPT/HCPCS: 74177; Q9967

== ENCOUNTER 2023-04-29 13:19 | Emergency (ER) | payer OTHER, SELFPAY ==
[2023-04-29 13:24] VITALS: BP 126/107; PULSE 63; RESP 18; TEMP 36.1; O2SAT 98
--- NOTE | 2023-04-29 13:31 | EKG12_ITS ---
Test Reason : CP Blood Pressure : / mmHG Vent. Rate : 062 BPM Atrial Rate : 062 BPM P-R Int : 140 ms QRS Dur : 088 ms QT Int : 402 ms P-R-T Axes : 056 -31 032 degrees QTc Int : 408 ms Normal sinus rhythm Left axis deviation Abnormal ECG Confirmed by GUY BROWN, LORRIE ([id number]), assignment desk editor LJ DORAN ([id number]) on 05/02/2023 8:41:45 AM Referred By: PL/ES Confirmed By:SUNNY TOVAR MD
--- NOTE | 2023-04-29 14:05 | RAD_ITS ---
STUDY: X-RAY CHEST REASON FOR EXAM: Male, 47 years old. Chest pain . Hematuria. TECHNIQUE: Single AP portable view of the chest. COMPARISON: Comparison is made with prior study dated June 16, 2021. FINDINGS: Minimal degree of bibasilar atelectasis. There is no demonstrated pleural abnormality. Normal size heart. Normal mediastinum and gato. Normal visualized pulmonary arteries. Normal visualized aortic arch and descending thoracic aorta. Normal visualized thoracic spine. Normal visualized ribs, clavicles, and shoulders. There is no demonstrated abnormality of the visualized soft tissue structures of the upper abdomen. RAD/Chest 1 View (Portable) IMPRESSION: Minimal degree of bibasilar atelectasis. Electronically Signed: Tam Kolb MD at 14:23 EDT ,
[2023-04-29 14:14] LABS: Absolute Lymphocyte Count 1.33 X10^3/uL (0.83-4.51); Absolute Neutrophil Count 3.9 X10^3/uL (2.0-7.7); Basophil# 0.03 X10^3/uL; Basophil% 0.5 % (0-1); Eosinophil# 0.16 X10^3/uL; Eosinophils% 2.6 % (0-5); Hematocrit 47.2 % (40-54); Hemoglobin 15.3 g/dL (13.0-16.5); Lymphocyte # 1.33 X10^3/ul (0.83-4.51); Lymphocyte % 21.8 % (19-41); Mean Corp Hgb Conc 32.4 g/dL (32-36); Mean Corpuscular Hgb 29.8 pg (27.0-32.0); Mean Corpuscular Volume 91.8 fL (80-94); Mean Platelet Vol. 8.8 fl (6.2-12.0); Monocyte# 0.63 X10^3/uL; Monocyte% 10.3 % (0-10); NRBC Flagged by Analyzer 0 % (0-5); Neutrophil # 3.94 X10^3/uL (2.7-7.7); Neutrophil % 64.5 % (47-70); Platelet Count 221 K/mm3 (150-450); RBC Distribution Width CV 13.1 % (11.6-14.6); Red Blood Count 5.14 M/mm3 (4.6-6.2); White Blood Count 6.1 K/mm3 (4.4-11.0)
[2023-04-29 14:19] VITALS: BP 134/78; PULSE 67; RESP 18; O2SAT 97; BMI 27.3
[2023-04-29 14:29] LABS: Anion Gap 2 (5-15); BUN 16 mg/dL (7-18); BUN/Creat Ratio 14.5 RATIO (10-20); Calcium,Total 8.4 mg/dL (8.5-10.1); Chloride 105 mmol/L (98-107); EST Glomerular Filtration Rate 76 mL/min (>60); Est Glom Filt Rate - Afr Amer 92 mL/min (>60); Glucose 104 mg/dL (74-106); Potassium 3.7 mmol/L (3.5-5.1); Sodium Level 138 mmol/L (136-145); Troponin-I HS (w/2H Reflex) 4 pg/mL (3.0-78.0)
[2023-04-29 15:00] VITALS: BP 118/81; PULSE 67; RESP 14; TEMP 36.4; O2SAT 97
--- NOTE | 2023-04-29 15:40 | EDS_ITS ---
HPI History of Present Illness Chief Complaint: Chest Pain Detail of Chief Complaint: Syncopal episode at home. Informant: patient and spouse/S.O. Onset/Context/Timing Onset: Today and Hours Activity at onset: sudden Timing: Continuous Quality: Positive for Pain and Sharp Location: Left Chest Current Severity: Mild Maximum Severity: Mild Worsened By: Movement of Arm and Movement of Torso Relieved By: Nothing Associated Symptoms: Negative for Nausea, Vomiting, Diaphoresis, Dyspnea, Cough, Fever, Lightheadedness, Acid Reflux or Palpitations Narrative Narrative: 47-year-old male history of prior PE about 2 years ago. [place] to have clotting disorder lupus anticoagulant. He is on Coumadin 5 mg a day. He was at home preparing a meal he said he felt lightheaded and passed out. Said prior to passing out he became very diaphoretic. This occurred around noon. When he woke up was coming in by squad he developed left-sided chest discomfort. Does not believe he hit his head. He has no headache or head injury. No recent illness. Denies nausea vomiting, diarrhea or fever. Denies any cardiac history. He and his were recently in [place] a month ago. He has had no recent hospitalization or surgery. Prior Similar Symptoms: Yes and With Prior PE Recent Illness/Hospitalization: No CVD Risk Factors: Negative for Hypertension, Diabetes, Hypercholesterolemia or Smoking PE Risk Factors: Positive for Recent Travel/Surgery and Prior DVT or PE; Negative for Cancer or OCP + Smoking + >/=35 TAD Risk Factors: Negative for Marfan's Syndrome [facility] Medical History Abnormal cardiac enzyme level Former smoker Hypotension Psoriasis SVT (supraventricular tachycardia) Home Medications acetaminophen 500 mg capsule 500 mg PO Q6H PRN pain 04/29/23 [History Last Taken 04/28/23] cholecalciferol (vitamin D3) 125 mcg (5,000 unit) tablet (Vitamin D3) 125 mcg PO DAILY 04/29/23 [History Last Taken 04/29/23] multivitamin (Daily Multi-Vitamin tablet) 1 tab PO DAILY 04/29/23 [History Last Taken 04/29/23] warfarin 5 mg tablet 5 mg PO .COMPLEX 04/29/23 [History Last Taken 04/29/23] Allergy/AdvReac Type Severity Reaction Status Date / Time No Known Allergies Allergy Verified 04/29/23 13:27 Social History household members: spouse and children housing: house Smoking Status: Former smoker alcohol intake: current alcohol intake frequency: other substance use type: does not use ROS ROS ED ROS Narrative Denies recent illness. Review of Systems ROS Unobtainable: Denies due to encephalopathy Constitutional Constitutional ED: Denies chills or fever(s) Eyes Eyes: Reports none ENT ENT ED: Denies ear pain Cardiovascular Cardiovascular: Reports as per HPI and chest pain; Denies palpitations or racing heartbeat Respiratory/Chest Respiratory/Chest: Denies cough or dyspnea Gastrointestinal Gastrointestinal: Denies abdominal pain, constipation or diarrhea Genitourinary Genitourinary ED: Denies dysuria or hematuria Musculoskeletal Musculoskeletal: Denies arthralgias or back pain Integumentary Denies abscess or Abrasions Neurologic Neurologic: Denies headache(s) Psychiatric Psychiatric: Denies anxiety Endocrine Endocrinology: Denies cold intolerance Hematologic/Lymphatic Hematologic/Lymphatic: Denies easy bleeding, easy bruising or lymphadenopathy Allergic/Immunologic Allergic/Immunologic ED: Denies mouth swelling, tongue swelling or urticaria EXAM Physical Exam Narrative Exam Narrative: 47-year-old male no acute distress. Sitting upright in bed. at bedside. Vital signs stable afebrile. Pulse ox 90% on room air no signs hypoxia. H EENT exam unremarkable atraumatic. Pupils round reactive light. Scalp nontender. Face and scalp no trauma. C-spine nontender. Back and spine nontender. Trachea midline. Lungs clear to auscultation bilaterally. Heart regular rate and rhythm no murmur rate about 70. Chest wall reproducible tenderness to left chest wall that is the pain he is having. There is no ecchymosis or bruising. No subcu air crepitus. No gross bony deformity. Abdomen soft nontender. Moving all 4 extremities. Calves are nontender without edema or cords. Equal symmetrical radial pulse. 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 Normal dorsi plantarflexion. Neurologically is awake alert with no focal motor deficits. Back unremarkable. Benign exam. Const Vital Signs: 04/29/23 13:24 04/29/23 14:19 04/29/23 14:19 Temperature 97 F L Temperature Source Temporal Pulse Rate 63 67 Respiratory Rate 18 18 Respiratory Effort Blood Pressure 126/107 H 134/78 H Blood Pressure Mean 113 96 Pulse Ox 98 97 Oxygen Delivery Method Room Air Room Air Room Air 04/29/23 15:00 04/29/23 15:16 Temperature 97.6 F L Temperature Source Temporal Pulse Rate 67 Respiratory Rate 14 Respiratory Effort Normal Blood Pressure 118/81 H Blood Pressure Mean 93 Pulse Ox 97 Oxygen Delivery Method Room Air Positive well nourished and well developed; Negative for cachectic, contractures or unkempt General Appearance ED: well developed; Negative for unkempt, cachectic, contractures or pallor Nutritional Appearance: Negative for cachectic HEENT Reports moist mucous membranes; Denies dry mucous membranes normocephalic and atraumatic; Negative for trauma or tenderness Mouth ED: No dry mucous membranes Mouth: No dry mucous membranes Eyes PERRL and EOMs intact bilaterally General Eye ED: Negative for pale conjunctiva, scleral icterus or other Neck no lymphadenopathy, supple and no JVD General: Negative for tenderness Chest Wall inspection of chest normal; Negative for palpation of chest normal Chest Narrative: Left chest wall tenderness. No bruising, crepitus nor bony deformity. Chest: Negative for tenderness Resp normal respiratory effort and clear to auscultation bilaterally Effort and Inspection: Negative for respiratory distress Auscultation: Negative for rales, rhonchi or wheezes Cardio regular rate, regular rhythm, S1 normal heart sound, S2 normal heart sound and no murmurs Rate: Negative for bradycardia or tachycardic Rhythm: Negative for abnormal rhythm Peripheral Pulses: pulses 2+ throughout GI normal to inspection, nondistended, normoactive bowel sounds, soft to palpation, non-tender, non-distended and no masses Auscultation: Negative for hyperactive bowel sounds Palpation: Negative for splenomegaly or mass Back/Spine no CVA tenderness and no thoracic nor lumbar tenderness General Back: Negative for CVA tenderness Cervical Spine: Negative for cervical spine tenderness Extremity normal to inspection General Extremety ED: Negative for edema, pulses abnormal or tenderness General Extremity: Negative for edema or pulses abnormal Neuro oriented x3, CN's II-XII intact bilaterally and no sensory deficits noted Sensorium / Orientation: awake, alert, oriented to person, oriented to place and oriented to time; Negative for confused, lethargic or stuporous Motor Exam: strength 5/5 throughout Psych mental status grossly normal Appearance: Negative for unkempt Attitude: No agitated Mood & Affect: Negative for depressed, anxious or tearful Skin no rashes or lesions noted and no wounds General Skin Exam: Negative for jaundice or pallor Rashes: No rashes noted Trauma: Negative for abrasion, laceration or puncture Heart Score History: Slightly/Non-Suspicious ECG: Normal Age: >45 - <65 years Risk Factors: No Risk Factors Troponin: </= Normal Limit Score: 1 MDM MDM MDM Narrative Medical decision making narrative: 47-year-old male prior PE history. On Coumadin. Has a lupus anticoagulant. Today had a syncopal visit event prior to that he was feeling fine. Did not have any significant head trauma. Is having chest pain appears to be reproducible. Will undergo cardiac and PE work-up. Check his Coumadin level. Repeat exam is doing well at 5:35 PM. We went over all his test results both he and his . He is therapeutic with INR of 2.3. His D-dimer is negative. So this definitely should be a PE. His cardiac work-up and 2 troponins are both normal. There is no signs of a dysrhythmia. He has had syncopal episodes in the past. Both he and his are comfortable with him being discharged home with outpatient follow-up. History & Record Review Discussion w/independent historian: Patient and Family Additional record(s) reviewed:: Prior inpatient record, Prior outpatient record, Prior ED visit, Prior labs and No prior records Lab Data Attestation: I reviewed the patient's lab results. Lab results narrative: CBC normal. White count of 6. H&H of 15 and 47. Platelets 221. Chemistries 2. Normal BUN and creatinine is 16 and 1. Troponin is normal at 4. 2-hour troponin is normal also at 4. Chest x-ray normal. EKG normal sinus rhythm rate of 62. D-dimer is normal at less than 0.27. INR is 2.3 Labs: Laboratory Results - last 24 hr 04/29/23 04/29/23 04/29/23 14:05 15:55 16:45 WBC 6.1 RBC 5.14 Hgb 15.3 Hct 47.2 MCV 91.8 MCH 29.8 MCHC 32.4 RDW Std Deviation 44.0 H RDW Coeff of [place] 13.1 Plt Count 221 MPV 8.8 Immature Gran % (Auto) 0.300 Neut % (Auto) 64.5 Lymph % (Auto) 21.8 Cooper % (Auto) 10.3 H Eos % (Auto) 2.6 Baso % (Auto) 0.5 Absolute Neuts (auto) 3.9 Absolute Lymphs (auto) 1.33 Nucleated RBC % 0 PT 25.6 H INR 2.3 D-Dimer Quant (PE/DVT) < 0.27 L Sodium 138 Potassium 3.7 Chloride 105 Carbon Dioxide 31.0 Anion Gap 2 L BUN 16 Creatinine 1.10 Est GFR (MDRD) Af Amer 92 Est GFR (MDRD) Non-Af 76 BUN/Creatinine Ratio 14.5 Glucose 104 Calcium 8.4 L Troponin I High Sens 4 4 Radiography Chest X-Ray - ED: 1 View, Read by ED Physician, Normal, Heart, Lungs, Mediastinum, Bony Structures and No Acute Disease Diagnostic Testing: Clinical Impression(s) from Imaging Studies Chest X-Ray 04/29/23 14:05 IMPRESSION: Minimal degree of bibasilar atelectasis. Electronically Signed: Tam Kolb MD at 14:23 EDT , Chest x-ray, portable, single view shows no acute abnormality. Normal cardiac silhouette. Normal mediastinum. Normal lung musa. No gross bony abnormalities. Interpreted both by myself and the radiologist. Rhythm Strip Rhythm Strip: Sinus Rhythm Rate: 62 Ectopy: None EKG Initial EKG: Attestation: I personally reviewed and interpreted this EKG as follows: Interpretation: Sinus Rhythm and No Acute Injury Pattern Comments: Normal sinus rhythm rate of 62 no acute signs of MD nor ischemia nor dysrhythmia. Discharge Plan Triage Chief Complaint: Chest Pain ED Provider: Isaias Kovacs Dx/Rx/DC Orders Clinical Impression: Left-sided chest pain, Chronic anticoagulation, Syncope, Hx pulmonary embolism, Acute chest wall pain Instructions: ED Fainting, Uncertain Cause Prescriptions: No Action warfarin 5 mg tablet 5 mg PO .COMPLEX Patient Comments: TAKE 1/2 (HALF) A TAB BY MOUTH TUE AND 1 TAB ALL OTHER DAYS OR DIRECTED Rx Instructions: 5 mg orally 2.5 MG ON TUESDAY'S AND 5 MG EVERY OTHER DAY OF THE WEEK; cholecalciferol (vitamin D3) [Vitamin D3] 125 mcg (5,000 unit) tablet 125 mcg PO DAILY multivitamin [Daily Multi-Vitamin] Tablet 1 tab PO DAILY acetaminophen 500 mg capsule 500 mg PO Q6H PRN (Reason: pain) Primary Care Provider: Manny Dockery Referrals: Manny Dockery MD [Primary Care Provider] - 3-5 Days if not improving Activity Restrictions/Additional Instructions: Your labs are unremarkable. Normal blood counts. Normal electrolytes. Normal heart enzymes. Negative test for blood clot. Your Coumadin level your INR was 2.3. Chest x-ray and EKG were normal. Follow-up with your primary care physician as needed. Return if feeling worse. Millimeters If you develop a severe headache come back in to have a CAT scan done at this time there is no signs of trauma to your head so I do not think you need a CAT scan. Disposition Disposition: Home, Self Care
[2023-04-29 16:00] VITALS: BP 120/76; PULSE 78; RESP 14; O2SAT 97
[2023-04-29 16:08] LABS: Reflex Troponin-HS? (from REC) Y
[2023-04-29 16:24] LABS: International Normalized Ratio 2.3; Prothrombin Time (Protime)PT. 25.6 SECONDS (11.7-14.9)
[2023-04-29 16:50] LABS: D-Dimer Quantitative (DVT/PE) < 0.27 FEU/ug/m (0.27-0.49)
[2023-04-29 17:00] VITALS: BP 128/71; PULSE 64; RESP 14; O2SAT 98
[2023-04-29 17:15] LABS: Troponin-I HS 4 pg/mL (3.0-78.0)
[2023-04-29 18:00] VITALS: BP 124/64; PULSE 67; RESP 14; TEMP 36.6; O2SAT 99
== END 2023-04-29 18:07 | disposition home or self-care (01) ==
PROVIDERS: Emergency Provider Emergency Medicine; PCP Family Medicine; Visit Provider Emergency Medicine
DX: R55 Syncope and collapse (principal); Z79.01 Long term (current) use of anticoagulants; Z87.891 Personal history of nicotine dependence; R76.0 Raised antibody titer; R07.89 Other chest pain; Z86.711 Personal history of pulmonary embolism
CPT/HCPCS: 71045; 80048; 84484; 85025; 85379; 85610; 93005; 99284; A4216